=== PATIENT | female | born 1940 | race Caucasian/White ===

== ENCOUNTER → 2017-02-28 | Day surgery (SDC) | payer OTHER ==
[~2017-02-28] MED LIST: BUPIVACAINE LIPOSOME PF 1.3% 20 ML VIAL ONE; BUPIVACAINE/EPINEPHRINE 0.5% 50 ML VIAL ONE; DEXAMETHASONE SOD PHOS 4 MG/ML VIAL IV ONE; ISOSULFAN BLUE 50 MG/5 ML VIAL SQ ONE; LIDOCAINE HCL 1% PF 5 ML AMPULE OTHER ONE; MIDAZOLAM HCL 2 MG/2 ML VIAL ONE; ONDANSETRON HCL 4 MG/2 ML VIAL IV PUSH ONE; PRAV40TA2 PO; PROPOFOL 100 MG/10 ML INJ IV ONE; SERT-129 PO; SODIUM CHLORIDE 0.9% 20 ML VIAL ONE; SODIUM CHLORIDE 0.9% INJ 0 ML ONE; ceFAZolin 2 GM PREMIX 50 ML ONE; ePHEDrine/NS 25 MG/5 ML SYR IV ONE
--- NOTE | 2017-02-28 16:25 | TN ---
cc: KRUPA BAILEY DATE OF SURGERY 02/28/2017 PREOPERATIVE DIAGNOSIS Left breast invasive carcinoma T1 N0 clinically. POSTOPERATIVE DIAGNOSIS Left breast invasive carcinoma T1 N0 clinically. PROCEDURE 1. Left needle-localized breast lumpectomy. 2. Left axillary sentinel lymph node biopsy. 3. Intraoperative radiation therapy (IRT). SURGEON Krupa Bailey MD PATENT LEGAL ASSISTANT Staff. Intraoperative radiologist for the procedure is Dr. Jey Hernández MD. ANESTHESIA General and local anesthetic with Exparel. BLOOD LOSS Less than 25 cc. COMPLICATIONS None. FINDINGS 1. Clip in center of specimen on lumpectomy specimen with intraoperative radiation consultation. 2. Hot and blue left axillary sentinel lymph node times one grossly negative. INDICATION FOR PROCEDURE The patient is a 76-year-old female with a recently diagnosed left breast intraductal carcinoma found on routine imaging. Needle core biopsy revealed invasive ductal carcinoma. Clinical staging revealed T1 N0 disease. The patient was found to be a candidate for intraoperative radiation therapy, breast conservation therapy with needle localized lumpectomy and sentinel node biopsy for staging. Risks, benefits, alternatives to this treatment were discussed with the patient prior to the procedure and the patient agreed to undergo the procedure. PROCEDURE DETAILS The patient taken to the operating room, placed in supine position, placed under general endotracheal anesthesia. The patient's left breast and axilla were prepped, draped in sterile fashion. Time-out was performed. The patient underwent preoperative lymphoscintigraphy which failed to show a definitive sentinel node. Blue dye was then used in the left periareolar area approximately 2 mL. We did make a incision under the hairline with a 15 blade scalpel after instillation with Exparel. We dissected through the subcu tissue and through the clavipectoral fascia with the Bovie electrocautery. We placed a self retainers and evaluated the axilla. There was lots of background uptake but not a lot of focal areas of uptake consistent with lymphoscintigraphy with no focal sentinel node. However, with some minimal dissection we easily identified a very blue node in the left axilla. This was grossly negative and was excised completely with the Bovie electrocautery. Once we had excised this again, this was found to be a hot mildly blue node. There was no other blue node. No palpable nodes and very inconsistent background uptake in the rest of the axilla. At this point in time I felt like the sentinel lymph node had been completed appropriately this is the blue dye and had turned towards closure. We closed the clavipectoral function with 3-09 Vicryl suture. We closed the skin with 4-0 Monocryl and Dermabond. We turned out attention towards the lumpectomy. We performed a periareolar incision with a 15 blade scalpel. We used bovie electrocautery to dissect through the subcutaneous tissue into the breast parenchyma. Once we identified the medial border at the wire this was divided with wire cutters and the majority of the wire was removed from the patient. We then continued our dissection with Metzenbaum scissors 360 degrees around the lumpectomy site. We divided the posterior right at the level of the pectoralis fascia with the Metzenbaum scissors as well. This and marked with a short suture superior and a long lateral and passed off for pathology and radiology evaluation. Radiology evaluated the specimen. The clip was in the center of the specimen. The mass was palpable within the specimen and grossly we had negative margins. We did use Bovie electrocautery to get hemostasis. We took additional margins as a shaved type margins with the Metzenbaum scissors and marked stitches for true margin. This was done for all six margins inferior, superior, anterior, posterior, medial and lateral. We did irrigate out the area with sterile saline until all suction was clear and again we had excellent hemostasis spontaneously as well as with the Bovie electrocautery. We measured the cavity. This was approximately 3 cm wide at deepest component. We used the 3.5 cm size intraoperative radiation therapy probe and this fit quite perfectly into the lumpectomy cavity. We placed a pursestring around subcutaneous tissue and tied this down with a #1 Prolene. The ultrasound revealed over 1 cm throughout the probe as it relates to the skin. Dr. Jey Hernández was present for this and felt this was appropriately positioned specimen. This were no air gaps as well. We then placed the wet laps and radiation shielding around the probe and we exited the room for the intraoperative radiation therapy portion. Once this was completed the intraoperative radiation probe was removed and lumpectomy and its cavity was closed with Vicryl and Monocryl and Dermabond. Again Exparel was injected in this area for local anesthetic. The patient was discontinued from anesthesia and taken to the PACU in stable condition. The patient tolerated the procedure well. No apparent complications. All counts were correct. I was present and scrubbed for the entire procedure. MD CARMEN Chew/KK /3:15 PM /3:29 PM [email or web address]
== END | disposition home or self-care (01) ==
LOC: ESDC 08:13
PROVIDERS: ATTEND Surgery
DX: C50.912 Malignant neoplasm of unspecified site of left female breast (principal)
CPT/HCPCS: 00400; 01610; 19125; 38525; 38792; 77290; 77300; 77334; 77370; 77424; 88307; C9290; J0690; J1100; J2250; J2405; J3010; Q9968; 77469